=== PATIENT | male | born 1985 | race Caucasian/White ===

== ENCOUNTER → 2020-07-06 | Outpatient (CLI) | payer BC ==
[2020-07-06 10:55] LABS: ALBUMIN 4.2 g/dL (3.5-5.0); POTASSIUM 4.6 mmol/L (3.5-5.1)
[2020-07-06 10:56] LABS: CALCIUM 9.2 mg/dL (8.3-10.5)
[2020-07-06 10:57] LABS: TOTAL PROTEIN 7.4 g/dL (6.4-8.3)
[2020-07-06 10:59] LABS: TOTAL BILIRUBIN 0.5 mg/dL (0.2-1.2)
[2020-07-06 11:03] LABS: EOS # 0.1 (0.04-0.40); EOS % 1.6 % (0.0-4.0); HEMATOCRIT 46.6 % (42.0-52.0); HEMOGLOBIN 15.8 g/dL (13.5-18.0); LYMPH# 2.4 (1.50-4.00); MEAN CELL VOLUME 84 fl (78-100); MEAN CORPUSCULAR HEMOGLOBIN 28 pg (27-31); MEAN CORPUSCULAR HGB CONC 34 g/dL (33-37); MEAN PLATELET VOLUME 9.7 fl (7.4-10.4); MONO # 0.9 (0.20-0.80); NEU # 4.7 (1.40-6.50); PLATELET COUNT 230 K/mm3 (130-400); RED BLOOD COUNT 5.57 M/mm3 (4.20-5.60); RED CELL DISTRIBUTION WIDTH 12.8 % (11.5-14.5); WHITE BLOOD COUNT 8.2 K/mm3 (4.8-10.8)
== END ==
LOC: RAD 10:01
PROVIDERS: Family Medicine
DX: R10.32 Left lower quadrant pain (principal)
CPT/HCPCS: Q9967

== ENCOUNTER → 2021-08-02 | Outpatient (CLI) | payer BC ==
[2021-08-02 12:38] LABS: BASO # 0.04 K/mm3 (0.02-0.10); EOS # 0.26 K/mm3 (0.04-0.40); EOS % 2.3 % (0.0-4.0); HEMATOCRIT 44.1 % (42.0-52.0); LYMPH# 2.38 K/mm3 (1.50-4.00); MEAN CELL VOLUME 84 fl (78-100); MEAN CORPUSCULAR HEMOGLOBIN 29 pg (27-31); MEAN CORPUSCULAR HGB CONC 34 g/dL (33-37); MEAN PLATELET VOLUME 8.7 fl (7.4-10.4); MONO # 0.98 K/mm3 (0.20-0.80); NEU # 7.76 K/mm3 (1.40-6.50); PLATELET COUNT 269 K/mm3 (130-400); RED BLOOD COUNT 5.24 M/mm3 (4.20-5.60); RED CELL DISTRIBUTION WIDTH 11.8 % (11.5-14.5); WHITE BLOOD COUNT 11.5 K/mm3 (4.8-10.8)
[2021-08-02 12:58] LABS: ALBUMIN 4.3 g/dL (3.5-5.0)
[2021-08-02 12:59] LABS: POTASSIUM 4.2 mmol/L (3.5-5.1); SODIUM 142 mmol/L (136-145)
[2021-08-02 13:00] LABS: CALCIUM 10.1 mg/dL (8.3-10.5)
[2021-08-02 13:01] LABS: GLUCOSE 100 mg/dL (75-110); TOTAL PROTEIN 7.9 g/dL (6.4-8.3)
[2021-08-02 13:02] LABS: CARBON DIOXIDE 25 mmol/L (22-29)
[2021-08-02 13:03] LABS: TOTAL BILIRUBIN 0.8 mg/dL (0.2-1.2)
[2021-08-02 13:06] LABS: AST-SGOT 21 U/L (5-34)
[2021-08-02 13:08] LABS: ALT/SGPT 58 U/L (0-55)
[2021-08-02 13:55] LABS: D-DIMER 3.59 mg/L FEU (0.15-0.50)
[2021-08-02 15:21] LABS: TROPONIN-I < 0.030 ng/mL (<0.030)
== END ==
LOC: LAB 12:23
PROVIDERS: Nurse Practitioner Family
DX: I26.99 Other pulmonary embolism without acute cor pulmonale (principal); R91.8 Other nonspecific abnormal finding of lung field; J90 Pleural effusion, not elsewhere classified; R10.9 Unspecified abdominal pain; R50.9 Fever, unspecified
CPT/HCPCS: Q9967